=== PATIENT | female | born 1960 | race Caucasian/White ===

== ENCOUNTER → 2017-09-30 | Outpatient (CLI) | payer BC | LOC: BMCIMAGING 18:50 | PROVIDERS: ATTEND Family Medicine | DX: S92.332A Displaced fracture of third metatarsal bone, left foot, initial encounter for closed fracture (principal) ==

== ENCOUNTER → 2017-10-11 | Outpatient (CLI) | payer BC | LOC: BMCIMAGING 16:11 | PROVIDERS: ATTEND Podiatrist Foot & Ankle Surgery | DX: M20.11 Hallux valgus (acquired), right foot (principal); M21.611 Bunion of right foot; M21.612 Bunion of left foot ==